=== PATIENT | male | born 1935 | race Caucasian/White ===

== ENCOUNTER 2018-10-14 16:16 | Inpatient (IN) | payer MEDICARE, MEDICAID ==
[~2018-10-14] VITALS: Ht 165.1 cm; Wt 75.8 kg
--- NOTE | 2018-10-14 15:40 | NUR ---
ADMITTED TO [facility] SKILLED NURSING ROOM 1131 VIA WHEELCHAIR FROM [facility]. HE IS AWAKE AND CONFUSED TO TIME, DATE OR WHY HE WAS BROUGHT HERE. HE STATES HE HAS PARKINSON DISEASE AND LIVES WITH HIS AT [facility]. HE IS UPSET AND WANTS TO TALK TO HIS .
[2018-10-14] MEDS ORDERED: AMITRIPTYLINE H50 MG PO (17:50)
[2018-10-14] MEDS ORDERED: ARTIFICIAL TEAR15 ML (17:51)
[2018-10-14] MEDS ORDERED: CARBIDOPA-LEVO1 EAC2 PO (17:52)
[2018-10-14] MEDS ORDERED: CELEXA20 MG PO (17:53)
[2018-10-14] MEDS ORDERED: COLACE100 MG PO (17:53)
[2018-10-14] MEDS ORDERED: DONEPEZIL HCL10 MG PO (17:54)
[2018-10-14] MEDS ORDERED: FLUTICASONE PRO16 GM NASAL (17:55)
[2018-10-14] MEDS ORDERED: NEURONTIN 300300 MG (17:55)
[2018-10-14] MEDS ORDERED: NORCO 10-325 TA1 TAB PO (17:57)
[2018-10-14] MEDS ORDERED: PRINIVIL20 MG PO (17:57)
[2018-10-14] MEDS ORDERED: NAPROXEN SODIU220 M1 PO (17:58)
[2018-10-14] MEDS ORDERED: FLOMAX0.4 MG PO (17:59)
[2018-10-14] MEDS ORDERED: ZANTAC300 MG PO (18:01)
[2018-10-14 18:08] VITALS: BP 119/57
--- NOTE | 2018-10-15 01:31 | NUR ---
RECEIVED IN PATIENT ROOM. RESTING IN BED WITH EYES OPEN. CALM AND COOPERATIVE WITH CARE AND ASSESSMENT. NO SIGNS OF AGGRESSION. NO SEXUALLY INAPPROPRIATENESS. REDIRECT AND REORIENT NEEDED. RESTING IN BED WITH EYES CLOSED AT THIS TIME. CONTINUE PLAN OF CARE.
[2018-10-15 06:58] LABS: BASOPHILS 0.4 % (0-2); EOSINOPHILS 1.7 % (0-7); HEMATOCRIT 43.1 % (42.0-54.0); HEMOGLOBIN 14.4 g/dL (13.5-17.5); IMMATURE GRANULOCYTES 0.2 % (0-5); LYMPHOCYTES 17.3 % (15-50); MCH 32.1 pg (26.0-34.0); MCHC 33.4 g/dL (31.0-37.0); MCV 96.2 fL (80.0-100.0); MEAN PLATELET VOLUME 10.6 fL (7.4-10.4); MONOCYTES 6.5 % (2-11); NEUTROPHILS 73.9 % (40-80); RBC 4.48 10x6/uL (4.20-6.10); RDW 12.9 % (11.5-14.5); WBC 5.4 10x3/uL (4.8-10.8)
[2018-10-15 07:07] LABS: PLATELET COUNT 159 10x3/uL (130-400)
--- NOTE | 2018-10-15 07:30 | NUR ---
REC'D PT IN HALLWAY SITTING IN WHEELCHAIR. AWAKE AND ALERT TO SELF. CALM AND COOPERATIVE WITH ASSESSMENT. NO AGGRESSION NOTED AT THIS TIME. REDIRECT AND REORIENT NEEDED. PRESCRIBED MEDS PROVIDED. MED COMPLIANT. WILL CONTINUE TO MONITOR Q 15 MINUTES FOR SAFETY. WII CPOC.
[2018-10-15 07:42] LABS: ALBUMIN 3.9 g/dL (3.4-5.0); ALKALINE PHOSPHATASE 59 U/L (46-116); ALT (SGPT) 23 U/L (10-68); BILIRUBIN - TOTAL 0.99 mg/dL (0.2-1.3); CALC OSMOLALITY 284 mosm/kg (275-300); CARBON DIOXIDE 29.8 mmol/L (21.0-32.0); CHLORIDE - SERUM 104 mmol/L (98-107); CHOL - HDL RATIO 2.5 ratio (2.3-4.9); CHOLESTEROL, TOTAL 139 mg/dL (0-200); CREATININE - SERUM 0.8 mg/dL (0.6-1.3); GLUCOSE 101 mg/dL (74-106); HDL CHOLESTEROL 55 mg/dL (32-96); LDL CHOLESTEROL 70 mg/dL (0-100); LDL-HDL RATIO 1.3 ratio (1.5-3.5); POTASSIUM - SERUM 3.6 mmol/L (3.5-5.1); PROTEIN - SERUM 7.1 g/dL (6.4-8.2); SODIUM 142 mmol/L (136-145); THYROID STIMULATING HORMONE 0.91 uIU/mL (0.36-3.74); TRIGLYCERIDE 72 mg/dL (30-200); UREA NITROGEN 19 mg/dL (7-18); eGFR NON AFRICAN AMERICAN > 90 mL/min (90-120)
[2018-10-15 08:00] VITALS: BP 178/94
[2018-10-15 13:21] VITALS: BMI 27.8
[2018-10-15 14:20] VITALS: BMI 27.7
[2018-10-15 19:31] VITALS: BP 121/73
--- NOTE | 2018-10-15 23:22 | NUR ---
RECEIVED IN HALLWAY OUTSIDE OF NURSES STATION. SITTING IN WHEELCHAIR WITH PEERS AT HIS SIDE. CALM AND COOPERATIVE WITH CARE AND ASSESSMENT. NO SIGNS OF AGGRESSION. NO SEXUALLY INAPPOPRIATENESS. REDIRECT AND REORIENT NEEDED. RESTING IN BED WTIH EYES CLOSED AT THIS TIME. CONTINUE PLAN OF CARE.
[2018-10-16 06:16] LABS: VITAMIN D 25 HYDROXY 10.6 ng/mL (30.0-100.0)
[2018-10-16 07:38] LABS: RAPID PLASMA REAGIN Non Reactive (Non Reactive)
[2018-10-16 08:22] LABS: FOLATE (FOLIC ACID) - SERUM 5.8 ng/mL (>3.0)
--- NOTE | 2018-10-16 10:00 | NUR ---
RECEIVED PATIENT IN DINING ROOM FOR B'FAST, ALERT, CALM, COOPERATIVE, CONFUSED, POOR STM, NO AGGRESSION NOTED. MEDS ADMIN PER ORDERS WITH COMPLETE MED COMPLIANCE NOTED. COOPERATIVE WITH GROUP AND STAFF REQUESTS. CONT POC INCLUDING MEDS AND GROUP THERAPY DIRECTED.
[2018-10-16 11:37] VITALS: BP 177/94
--- NOTE | 2018-10-16 16:07 | PSY ---
PATIENT NAME:CATIE GEE MEDICAL RECORD: [id number] : 39 LOCATION:[facility] ADMISSION DATE: 10/14/18 ACCOUNT: [id number] PSYCHIATRIC EVALUATION DATE OF EVALUATION: 10/15/18 IDENTIFYING DATA: The patient is 83 years old and he is admitted to the hospital on a voluntary basis from a local [facility]. CHIEF COMPLAINT: None. HISTORY OF PRESENT ILLNESS: The patient lives in a [facility] with his . Apparently, he has been resistive with care there and has been aggressive with staff as well as sexually inappropriate. This is what is reported to us when the [facility] made the referral. I have asked him about these symptoms and he seems to genuinely not understand what I am talking about or have any recollection of it, so at this point I do not have details about it. He is clearly significantly and seriously impaired cognitively. PAST MEDICAL HISTORY: Significant for Parkinson's disease, hypertension, gastroesophageal reflux disease, and benign prostatic hypertrophy. PAST PSYCHIATRIC HISTORY: Significant for dementia of the Alzheimer's type along with some problems with anxiety or depression. I am not sure if the anxiety and depression are since developing the Parkinson's or predate it. FAMILY HISTORY: Unknown. ALLERGIES: MORPHINE. CURRENT MEDICATIONS: Include Sinemet, Celexa, Colace, Aricept, Neurontin, Wisner, lisinopril, Naprosyn, Flomax, and Zantac. SOCIAL HISTORY: The patient is . He apparently has adult children, but I do not know their location. He cannot remember how many he has, but affirms that he does have children. His spouse does live in [place]. He cannot tell me what he did for living. He denies any history of drug or alcohol abuse, but again he is very confused and not very reliable at all. MENTAL STATUS EXAMINATION: The patient is awake, alert, and oriented to person and place but not to time or situation. His mood is anxious. His affect is constricted. Thought processes are circumstantial. Memory, concentration, and abstraction abilities are moderately impaired and he denies any intent to harm himself or others as well as psychotic symptoms. ASSETS: Supportive family members. LIABILITIES: Limited insight. DIAGNOSTIC IMPRESSION: AXIS I: Senile dementia of the Alzheimer's type with behavioral disturbances. AXIS II: None. AXIS III: Parkinson's disease, hypertension, gastroesophageal reflux disease, and benign prostatic hypertrophy. AXIS IV: Moderate. AXIS V: Global assessment of functioning is 25. PLAN: At this time, the patient is admitted to the hospital secondary to sexually inappropriate and aggressive behavior at the [facility]. He will be monitored for clinical changes associated with the medications I prescribed. His long-term prognosis is guarded. TRANSINT:[id number] Voice Confirmation ID: [id number] DOCUMENT ID: [id number] JOVITA PRIEST MD at 1607 CC: [id number] DICTATION DATE: 10/15/18 1631 COOK RELIEF: 10/15/18 1708 ADM IN [facility] [address] [place] [address]
[2018-10-16 20:48] VITALS: BP 126/66
--- NOTE | 2018-10-16 23:40 | NUR ---
RECEIVED IN PATIENT ROOM. RESTING IN BED WITH EYES OPEN. CALM AND COOPERATIVE WITH CARE AND ASSESSMENT. NO SIGNS OF AGGRESSION. NO SEXUALLY INAPPROPRIATE BEHAVIOR. REDIRECT AND REORIENT NEEDED. RESTING IN BED WITH EYES CLOSED AT THIS TIME. CONTINUE PLAN OF CARE.
[2018-10-17 10:01] VITALS: BP 155/84
--- NOTE | 2018-10-17 14:30 | NUR ---
B) The patient did not want to take his medications this am, but this nurse sat with him and told him he needs to take his Parkinsons medications so that he can think clearer, he is here so that he can get better and leave. He is confused, but he understood the medications for his Parkinson's he said "Yes, the Parkinson's really has me messed all up." He can self propel in his w/c. He does try to get up, but he is unsteady. I) Provide prescribed meds. R) The patient is pleasant and he will talk with the staff. P) Continue POC.
--- NOTE | 2018-10-17 14:42 | PN ---
PATIENT:CATIE GEE MEDICAL RECORD: [id number] LOCATION:[facility] ADMISSION DATE: 10/14/18 PROGRESS NOTE DATE OF SERVICE: 10/16/2018 SUBJECTIVE: The patient's case was discussed with staff. He has no new complaint. OBJECTIVE: The patient is confused but has not been openly agitated or disruptive today in any significant way. He is clearly impaired cognitively. He denies any intent to harm himself or others. He does have Parkinson disease and for this reason, this reason, the Haldol will be discontinued. TRANSINT:[id number] Voice Confirmation ID: [id number] DOCUMENT ID: [id number] JOVITA PRIEST MD at 1442 CC: [id number] DICTATION DATE: 10/16/18 1640 CONE TREATER: 10/16/18 2238 ADM IN [place] [address] [place] [address]
[2018-10-17 19:56] VITALS: BP 135/82
--- NOTE | 2018-10-17 21:40 | NUR ---
B) States he was brought here today by [facility] but has no idea what this place is. Has actually been here for three days. "I don't know a whole lot of things" ... "No, I don't know of any curtains." Propeled his wheelchair around unit, going into peer's rooms several times. Down in roon 1122, escorted out, then in room 1126, escorted out, down to 1134, escorted out. Lost his direction and each time escorted back to his own room, finally was ready to go to bed. No sexually inappropriate behaviors displayed thus far. No aggression displayed thus far. I) Administer medication as ordered, redirect and reorient PRN. R) Compliant with medications, confused, restless, directable. P) Monitor per plan of care.
[2018-10-18 08:00] VITALS: BP 173/102
--- NOTE | 2018-10-18 15:20 | PN ---
PATIENT:CATIE GEE MEDICAL RECORD: [id number] LOCATION:[facility] ADMISSION DATE: 10/14/18 PROGRESS NOTE DATE OF SERVICE: 10/17/2018 SUBJECTIVE: The patient's case was discussed with staff. He has no new complaint. OBJECTIVE: The patient is in good behavioral control. He has poor insight about his condition. He has not been overtly aggressive. ASSESSMENT: No change in diagnoses. PLAN: Current medicines have been reviewed. I anticipate he can be transitioned out of the hospital soon if this level of improvement continues. TRANSINT:[id number] Voice Confirmation ID: [id number] DOCUMENT ID: [id number] JOVITA PRIEST MD at 1520 CC: [id number] DICTATION DATE: 10/17/18 1527 HABILITATION WORKER: 10/17/[id number] ADM IN [place] [id number] [place] [address]
--- NOTE | 2018-10-18 16:21 | NUR ---
CONFUSED AND DISORIENTED.REQUIRES ENCOURAGEMENT TO TAKE MEDS.WANTS TO TAKE MEDS FOR PARKINSONS'DISEASE ONLY.NO AGGRESSION OBSERVED WILL CONTINUE WITH PLAMN OF CARE,MONITOR FOR CHANGES AND SAFETY.
[2018-10-18 20:54] VITALS: BP 136/75
--- NOTE | 2018-10-19 01:35 | NUR ---
B) Patient is alert and oriented to self, calm and cooperative this shift, I) Administered scheduled medications as ordered, monitored for safety R) Mediation compliant, follows instructions, P) Continue plan of care.
--- NOTE | 2018-10-19 07:30 | NUR ---
REC'D PT AWAKE AND ALERT TO SELF. SITTING IN W/C IN HALLWAY WITH PEERS. REDIRECT AND REORIENT NEEDED. NO AGGRESSION NOTED. CALM AND COOPERATIVE WITH ASSESSMENT. PRESCRIBED MEDS GIVEN. MED COMPLIANT. FALL PRECAUTIONS IN PLACE. WILL CONTINUE TO MONITOR Q 15 MINUTES FOR SAFETY. WILL CPOC.
[2018-10-19 09:17] VITALS: BP 141/80
--- NOTE | 2018-10-19 10:04 | PN ---
PATIENT:CATIE GEE MEDICAL RECORD: [id number] LOCATION:[facility] ADMISSION DATE: 10/14/18 PROGRESS NOTE DATE OF SERVICE: 10/18/2018 SUBJECTIVE: The patient's case was discussed with staff. He has no new complaint. OBJECTIVE: The patient denies intent to harm himself or others. He generally tolerates his medicines well. He is having a fair amount of anxiety. ASSESSMENT: No change in diagnoses. PLAN: Brief supportive and educational interventions were made. Long-term prognosis is guarded. TRANSINT:[id number] Voice Confirmation ID: [id number] DOCUMENT ID: [id number] JOVITA PRIEST MD at 1004 CC: [id number] DICTATION DATE: 10/18/18 1541 ART DISPLAY MAKER: 10/18/18 1639 ADM IN [facility] [address] [place] [address]
--- NOTE | 2018-10-19 16:58 | NUR ---
The patient is confused. He asked this nurse to come over to where he is sitting, but then he did not have anything to say.
[2018-10-19 20:00] VITALS: BP 107/56
--- NOTE | 2018-10-20 02:07 | NUR ---
B) Patient is alert and oriented to self, very confused, I) Administered scheduled medications as ordered, monitored for safety R) Mediation compliant, P) Continue plan of care.
[2018-10-20 08:59] VITALS: BP 147/90
--- NOTE | 2018-10-20 13:57 | PN ---
PATIENT:CATIE GEE MEDICAL RECORD: [id number] LOCATION:[facility] ADMISSION DATE: 10/14/18 PROGRESS NOTE DATE OF SERVICE: 10/19/2018 SUBJECTIVE: The patient's case was discussed with staff. He has no new complaint. OBJECTIVE: The patient is in good behavioral control with limited insight about his condition. He has not been aggressive today. Unfortunately, he is eating and drinking virtually nothing. I do not think this is related to a mood disorder. I do think this is related to an underlying dementia that is quite advanced. I am going to order Kris to assist with his appetite stimulation. Unfortunately, I think his prognosis is becoming increasingly clear and it is not a good situation long-term. Obviously, it is extremely poor if we cannot get adequate fluid and food into the patient. TRANSINT:[id number] Voice Confirmation ID: [id number] DOCUMENT ID: [id number] JOVITA PRIEST MD at 1357 CC: [id number] DICTATION DATE: 10/19/18 1108 MANAGER SOFTWARE: 10/19/18 1228 ADM IN [facility] [address] [place] [address]
[2018-10-20 18:17] VITALS: BP 114/67
--- NOTE | 2018-10-20 18:37 | NUR ---
CONFUSED AND DISORIENTED.ONLY WANTS TO TAKE PARKINSONS MEDS.NO AGGRESSION OBSERVED.WILL CONTINUE WITH PLAN OF CARE,MONITOR FOR CHANGES AND SAFETY.
--- NOTE | 2018-10-21 00:12 | NUR ---
PATIENT IS CONFUSED, NOT ABLE TO MAKE NEEDS KNOW, REPEATS HIMSELF AT TIMES SUCH "P,P,P,P,P,P". COMPLIANT WITH MEDS. NO ADVERSE REACTION NOTED. WILL FOLLOW POC
--- NOTE | 2018-10-21 07:30 | NUR ---
REC'D PT AWAKE AND ALERT TO SELF IN W/C IN HALLWAY WITH PEERS. CALM AND COOPERATIVE WITH ASSESSMENT. NO AGGRESSION NOTED. REDIRECT AND REORIENT NEEDED. PRESCRIBED MEDS PROVIDED. MED COMPLIANT. FALL PRECAUTIONS IN PLACE. WILL CONTINUE TO MONITOR Q 15 MINUTES FOR SAFETY. WILL CPOC.
[2018-10-21 08:04] VITALS: BP 153/80
--- NOTE | 2018-10-21 16:20 | PN ---
PATIENT:CATIE GEE MEDICAL RECORD: [id number] LOCATION:[facility] ADMISSION DATE: 10/14/18 PROGRESS NOTE DATE OF SERVICE: 10/20/2018 SUBJECTIVE: The patient's case was discussed with staff. He has no new complaint. OBJECTIVE: The patient is in good behavioral control. He is eating and sleeping reasonably well. His long-term prognosis is guarded. TRANSINT:[id number] Voice Confirmation ID: [id number] DOCUMENT ID: [id number] JOVITA PRIEST MD at 1620 CC: [id number] DICTATION DATE: 10/20/18 1414 ELECTROMAGNET CRANE OPERATOR: 10/20/18 1620 ADM IN [place] [id number]
[2018-10-21 20:40] VITALS: BP 138/70
--- NOTE | 2018-10-22 00:30 | NUR ---
RECEIVED IN PATIENT ROOM. RESTING IN BED WITH EYES CLOSED. RESPONDS TO VOICE. CALM AND COOPERATIVE WITH CARE AND ASSESSMENT. NO SIGNS OF AGGRESSION. REDIRECT AND REORIENT NEEDED. RESTING IN BED WITH EYES CLOSED AT THIS TIME. CONTINUE PLAN OF CARE.
[2018-10-22 08:00] VITALS: BP 121/76
[2018-10-22 11:02] VITALS: Ht 165.1 cm; Wt 75.8 kg
--- NOTE | 2018-10-22 15:55 | PN ---
PATIENT:CATIE GEE MEDICAL RECORD: [id number] LOCATION:[facility] ADMISSION DATE: 10/14/18 PROGRESS NOTE DATE OF SERVICE: 10/21/2018 SUBJECTIVE: The patient's case was discussed with staff. He has no new complaint. OBJECTIVE: The patient is in good behavioral control with limited insight about his condition. He generally tolerates his medicines well. ASSESSMENT: No change in diagnoses. PLAN: Current medicines and therapies have been reviewed. His long-term prognosis is guarded. If this level of improvement continues, I anticipate he can be transitioned back to the longterm soon. TRANSINT:[id number] Voice Confirmation ID: [id number] DOCUMENT ID: [id number] JOVITA PRIEST MD at 1555 CC: [id number] DICTATION DATE: 10/21/18 170 SR. STRATEGIC SOURCING MANAGER: 10/21/18 1757 ADM IN [facility] [address] [place] [id number]
[2018-10-22] MEDS ORDERED: Aricept PO (16:36)
[2018-10-22] MEDS ORDERED: Lisinopril PO (16:36)
[2018-10-22] MEDS ORDERED: NORVASC5 MG PO (16:37)
[2018-10-22] MEDS ORDERED: NAPROXEN250 MG PO (16:37)
[2018-10-22] MEDS ORDERED: VOLTAREN100 GM TOPICAL (16:38)
[2018-10-22] MEDS ORDERED: XANAX0.25 MG PO (16:38)
[2018-10-22] MEDS ORDERED: MEGACE40 MG PO (16:38)
[2018-10-22] MEDS ORDERED: VITAMIN D5000 UNIT PO (16:39)
[2018-10-22] MEDS ORDERED: LIDODERM 5 %1 PATCH TRANSDERM (16:39)
[2018-10-22] MEDS ORDERED: VITAMIN B-121000 MCG PO (16:39)
[2018-10-22 19:34] VITALS: BP 140/68
--- NOTE | 2018-10-23 04:57 | NUR ---
RECEIVED IN DAYROOM. RESTING IN RECLINER WITH EYES CLOSED. RESPONDS TO VOICE. CALM AND COOPERATIVE WITH CARE AND ASSESSMENT. NO SIGNS OF AGGRESSION. REDIRECT AND REORIENT NEEDED. RESTING IN BED WITH EYES CLOSED AT THIS TIME. CONTINUE PLAN OF CARE.
--- NOTE | 2018-10-23 07:30 | NUR ---
REC'D PT IN HALLWAY IN W/C. AWAKE AND ALERT TO SELF. CALM AND COOPERATIVE WITH ASSESSMENT. REDIRECT AND REORIENT NEEDED. PRESCRIBED MEDS PROVIDED. MED COMPLIANT. NO AGGRESSION NOTED. FALL PRECAUTIONS IN PLACE. WILL CONTINUE TO MONITOR Q 15 MINUTES FOR SAFETY. WILL CPOC.
[2018-10-23 08:00] VITALS: BP 182/90
--- NOTE | 2018-10-23 08:46 | NUR ---
SPOKE WITH DR BROWN REGARDING TEMP 99.2. NO NEW ORDERS NOTED. F/U AT [facility] AND CONTINUE TO MONITOR.
--- NOTE | 2018-10-23 10:15 | NUR ---
PT DC TO [facility]. ALL PAPERWORK FAXED AND COPY SENT WITH PT. PT LEFT IN STABLE CONDITION. NO S/SX OF DISTRESS NOTED.
--- NOTE | 2018-10-23 12:06 | PN ---
PATIENT:CATIE GEE MEDICAL RECORD: [id number] LOCATION:[facility] ADMISSION DATE: 10/14/18 PROGRESS NOTE DATE OF SERVICE: 10/22/2018 SUBJECTIVE: The patient's case was discussed with staff. He has no new complaint. OBJECTIVE: The patient has not been aggressive. He has pretty limited insight about his situation. He is difficult to redirect. ASSESSMENT: No change in diagnoses. PLAN: Current medicines have been reviewed. Long-term prognosis is guarded. TRANSINT:[id number] Voice Confirmation ID: [id number] DOCUMENT ID: [id number] JOVITA PRIEST MD at 1206 CC: [id number] DICTATION DATE: 10/22/18 163 MELT HELPER: 10/22/182128 DIS IN 10/23/18 [facility] [address] [place] [address]
--- NOTE | 2018-10-26 12:11 | DS ---
PATIENT:CATIE GEE :37 MEDICAL RECORD: [id number] DISCHARGE SUMMARY ADMISSION DATE: 10/14/18 DISCHARGE DATE: 10/23/18 IDENTIFYING DATA: The patient is 83 years old and he was admitted to the hospital on a voluntary basis. The patient lives in a local senior care and has been having trouble there. He was aggressive with the staff and actually was sexually inappropriate. He was quite confused when he presented to the hospital and had no recollection of details about what had transpired at the senior care. HOSPITAL COURSE: The patient was admitted to the hospital and fully evaluated from both medical, psychological, and social evaluation. He was treated with both mood stabilizing and memory enhancing medications. He showed improvement and was subsequently transitioned back to the senior care. DISCHARGE DIAGNOSES: AXIS I: Senile dementia of the Alzheimer's type with behavioral disturbances. AXIS II: None. AXIS III: Parkinson's disease, hypertension, gastroesophageal reflux disease, and benign prostatic hypertrophy. AXIS IV: Moderate. AXIS V: 30. PLAN: At the time of discharge, the patient was in good behavioral control, had no thoughts of harming himself or others, and was tolerating his medicines well. Follow up is to be with his primary care senior care physician. His long-term prognosis is guarded. TRANSINT:[id number] Voice Confirmation ID: [id number] DOCUMENT ID: [id number] JOVITA PRIEST MD at 1211 CC: [id number] DICTATION DATE: 10/25/18 1523 MRI SUPERVISOR: 10/26/18 0411 DIS IN 10/23/18 [place] [id number] [place] [address]
== END 2018-10-23 10:15 | DRG 57 ==
LOC: D.PSYCH 16:16
PROVIDERS: ADMIT Psychiatry & Neurology Psychiatry
DX: G30.1 Alzheimer's disease with late onset (principal); F02.81 Dementia in other diseases classified elsewhere, unspecified severity, with behavioral disturbance; G20 Parkinson's disease; I10 Essential (primary) hypertension; K21.9 Gastro-esophageal reflux disease without esophagitis; N40.0 Benign prostatic hyperplasia without lower urinary tract symptoms; F41.9 Anxiety disorder, unspecified; E53.8 Deficiency of other specified B group vitamins; E55.9 Vitamin D deficiency, unspecified; K59.00 Constipation, unspecified